=== PATIENT | female | born 1940 | race Two or more races ===

== ENCOUNTER 2021-07-12 04:21 | Inpatient (IN) | payer MEDICARE, OTHER ==
[~2021-07-12] VITALS: Ht 160 cm; Wt 75.8 kg
[2021-07-12 05:33] LABS: Basophils # (auto) 0.1 10 ^3/uL (0-0.2); Basophils % (auto) 1.1 % (0.0-2.0); Eosinophils # (auto) 0.2 10 ^3/uL (0-0.8); Eosinophils % (auto) 2.6 % (0.0-7.0); Hematocrit 37.5 % (36.0-46.0); Hemoglobin 12.4 g/dL (12.2-16.2); Lymphocytes # (auto) 1.7 10 ^3/uL (0.4-5.4); Lymphocytes % (auto) 25.2 % (10.0-50.0); Mean Corpuscular Hemoglobin 31.1 pg (28.0-32.0); Monocytes # (auto) 0.6 10 ^3/uL (0-1.3); Monocytes % (auto) 9.7 % (0.0-12.0); Neutrophils # (auto) 4.1 10 ^3/uL (1.6-8.6); Neutrophils % (auto) 61.4 % (37.0-80.0); Nucleated Red Blood Cells % 0.1 %; Red Blood Cells 3.99 10^6/uL (4.0-5.20); White Blood Cell 6.7 10^3/uL (4.4-10.8)
[2021-07-12 05:47] LABS: Albumin 3.8 g/dL (3.4-5.0); Calcium 9.2 mg/dL (8.5-10.1); Potassium 4.5 mmol/L (3.5-5.1)
[2021-07-12 05:52] LABS: BUN/Creatinine Ratio 23.8; Bilirubin, Total 0.3 mg/dL (0.2-1.0); Total Protein 7.3 g/dL (6.4-8.2)
[2021-07-12 08:21] LABS: Urine Bacteria FEW /hpf (None Seen); Urine Blood Negative /uL (Negative); Urine Specific Gravity 1.013 (1.001-1.035); Urine WBC 3 /hpf (0 - 5)
[2021-07-12] MEDS ORDERED: HYDROmorphone HCL 2 MG/ML VL IV PRN (12:30)
[2021-07-12] MEDS ORDERED: HEPARIN DRIP/D5W 100UNITS/ML 250 ML IV SCH ×4 (12:30→22:45)
[2021-07-12] MEDS ORDERED: MORPHINE SULFATE INJECTION 2 MG/ML SYRG IV PRN ×2 (12:30)
[2021-07-12] MEDS ORDERED: ONDANSETRON HCL 4 MG/2 ML VIAL IV PRN (12:30)
[2021-07-12] MEDS ORDERED: HYDROcodone-ACET 5/325MG TAB PO PRN (12:30)
[2021-07-12] MEDS ORDERED: DOCUSATE SOD 100 MG CAP PO PRN (12:30)
[2021-07-12] MEDS ORDERED: ALUM & MAG HYDROX-SIMETH LIQ(MAALOX) 30 ML PO PRN (12:30)
[2021-07-12] MEDS ORDERED: ENOXAPARIN SOD 60 MG/0.6 ML SYRINGE SC ONE (12:30)
[2021-07-12] MEDS ORDERED: NITROGLYCERIN 0.4 MG SL TAB SL PRN (12:30)
[2021-07-12] MEDS ORDERED: ASPirin 325 MG TAB PO ONE (12:30)
[2021-07-12] MEDS: SODIUM CHLORIDE 0.9% 1,000 ML IV SCH (12:49)
[2021-07-12 13:29] LABS: Cholesterol 126 mg/dL (< 200)
[2021-07-12 13:31] LABS: HDL Cholesterol 68 mg/dL (40-59); LDL Cholesterol 47 mg/dL (< 100); Triglycerides 54 mg/dL (< 150)
[2021-07-12] MEDS: ACETAMINOPHEN 325 MG TAB PO PRN ×2 (15:33→23:20)
[2021-07-12 16:14] LABS: INR 1.05 (0.9-1.15); Partial Thromboplastin Time 31.1 sec (23.6-33.0)
[2021-07-12 20:00] VITALS: BP 147/61
[2021-07-13] MEDS ORDERED: LOSA-69 PO (04:43)
[2021-07-13] MEDS ORDERED: POLY33504 PO (04:43)
[2021-07-13] MEDS ORDERED: CETI1TAB36 PO (04:43)
[2021-07-13] MEDS ORDERED: MULT-688 PO (04:43)
[2021-07-13] MEDS ORDERED: SUCR1TAB PO (04:43)
[2021-07-13] MEDS ORDERED: FLUT1SPR5 NAS (04:43)
[2021-07-13] MEDS ORDERED: SPIR25TA8 PO (04:43)
[2021-07-13] MEDS ORDERED: FLUT1AER3 IN (04:43)
[2021-07-13] MEDS ORDERED: ATOR10TA52 PO (04:43)
[2021-07-13] MEDS ORDERED: ALBU108A5 INH (04:43)
[2021-07-13] MEDS ORDERED: FLUO1TAB12 PO (04:43)
[2021-07-13 05:46] LABS: Hematocrit 41.2 % (36.0-46.0); Hemoglobin 13.6 g/dL (12.2-16.2); Mean Corpuscular Hemoglobin 31.8 pg (28.0-32.0); Mean Corpuscular Hgb Conc. 33.1 g/dL (32.0-36.0); Red Cell Distribution Width 13.3 % (11.8-14.3); White Blood Cell 7.7 10^3/uL (4.4-10.8)
[2021-07-13 06:01] LABS: Basophils % (manual) 0 (0.0-2.0); Blast Cells 0; Metamyelocytes % 0; Myelocytes % 0; Promyelocytes % 0; Reactive Lymphocytes 0
[2021-07-13 07:30] VITALS: BP 143/80
[2021-07-13 07:53] LABS: Band Neutrophils % (manual) 1; Eosinophils % (manual) 8 (0-7); Lymphocytes % (manual) 33 (10.0-50.0); Monocytes % (manual) 8 (0-12)
[2021-07-13 08:10] VITALS: BP 143/80
[2021-07-13 08:23] LABS: INR 1.06 (0.9-1.15); Partial Thromboplastin Time 61.5 sec (23.6-33.0)
[2021-07-13] MEDS: LISINOPRIL 5 MG TAB PO SCH ×2 (09:50→13:22)
[2021-07-13] MEDS: ATORVASTATIN 20 MG TAB PO SCH ×2 (09:50→13:23)
[2021-07-13] MEDS ORDERED: levoFLOXacin 500 MG TAB PO ONE (10:45)
[2021-07-13 11:17] LABS: INR 1.05 (0.9-1.15)
[2021-07-13] MEDS ORDERED: REGADENOSON 0.4 MG/5 ML SYRG IV ONE (11:30)
[2021-07-13 11:54] VITALS: BP 152/75
[2021-07-13 16:00] VITALS: BP 133/91
[2021-07-13 21:30] VITALS: BP 132/77
[2021-07-13] MEDS: SODIUM CHLORIDE 0.9% 1,000 ML IV SCH (21:50)
[2021-07-14] VITALS (8 sets, daily range): BP systolic 129–143; BP diastolic 46–80
[2021-07-14] MEDS: SODIUM CHLORIDE 0.9% 1,000 ML IV SCH ×2 (03:35→14:30)
[2021-07-14] MEDS: ATORVASTATIN 20 MG TAB PO SCH (10:00)
[2021-07-14] MEDS ORDERED: levoFLOXacin 500 MG TAB PO SCH (10:00)
[2021-07-14] MEDS ORDERED: ASPirin 81 mg TAB PO SCH (10:00)
[2021-07-14] MEDS: LISINOPRIL 5 MG TAB PO SCH (10:00)
[2021-07-14] MEDS ORDERED: fentaNYL CITRATE 100 MCG/2 ML VL ONE (14:48)
[2021-07-14] MEDS ORDERED: ANGIOMAX 250 MG VIAL IV ONE (14:48)
[2021-07-14] MEDS ORDERED: LIDOCAINE 2%HCL (LOCAL ANESTH.) INJ 20ML MDV ONE (14:49)
[2021-07-14] MEDS ORDERED: IOHEXOL 350 MG/ML 100ML IJ ONE ×2 (14:49→15:03)
[2021-07-14] MEDS ORDERED: SODIUM CHL 0.9% 0 ML ONE (14:49)
[2021-07-14] MEDS ORDERED: MIDAZOLAM HCL 2MG/2ML 2ml VIAL (1mg/ml) ONE (14:49)
== END 2021-07-14 20:30 | disposition home or self-care (01) | DRG 287 ==
LOC: ER 04:21 → EDBD 04:21 → TELE 12:35 → TELE-CENTR 18:07
PROVIDERS: ADMIT Family Medicine; ATTEND Internal Medicine
PROC: B2111ZZ Fluoroscopy of Multiple Coronary Arteries using Low Osmolar Contrast (ICD-10-PCS; principal; 2021-07-14)
PROC: 4A023N7 Measurement of Cardiac Sampling and Pressure, Left Heart, Percutaneous Approach (ICD-10-PCS; 2021-07-14)
PROC: B2151ZZ Fluoroscopy of Left Heart using Low Osmolar Contrast (ICD-10-PCS; 2021-07-14)
PROC: B41C1ZZ Fluoroscopy of Pelvic Arteries using Low Osmolar Contrast (ICD-10-PCS; 2021-07-14)
DX: I25.10 Atherosclerotic heart disease of native coronary artery without angina pectoris (principal); N39.0 Urinary tract infection, site not specified; G47.30 Sleep apnea, unspecified; E66.9 Obesity, unspecified; E78.5 Hyperlipidemia, unspecified; J44.9 Chronic obstructive pulmonary disease, unspecified; I10 Essential (primary) hypertension; Z20.822 Contact with and (suspected) exposure to COVID-19; Z68.28 Body mass index [BMI] 28.0-28.9, adult; Z86.73 Personal history of transient ischemic attack (TIA), and cerebral infarction without residual deficits; Z87.891 Personal history of nicotine dependence; Z90.710 Acquired absence of both cervix and uterus; Z90.49 Acquired absence of other specified parts of digestive tract; M79.602 Pain in left arm; Z88.0 Allergy status to penicillin
CPT/HCPCS: 36415; 71045; 75736; 78452; 80053; 80061; 81001; 83036; 83735; 84443; 84484; 85007; 85025; 85027; 85610; 85730; 93005; 93017; 93306; 93458; 96360; 96372; 99152; G0378; J2250

== ENCOUNTER 2021-07-24 12:41 | Inpatient (IN) | payer MEDICARE ==
[~2021-07-24] VITALS: Ht 162.6 cm; Wt 78.5 kg
[~2021-07-24 12:41] MED LIST: ALBU108A5 INH; ATOR10TA52 PO; CETI1TAB36 PO; FLUO1TAB12 PO; FLUT1AER3 IN; FLUT1SPR5 NAS; LOSA-69 PO; MULT-688 PO; POLY33504 PO; SPIR25TA8 PO
[2021-07-24 13:50] LABS: Basophils # (auto) 0.1 10 ^3/uL (0-0.2); Basophils % (auto) 1.2 % (0.0-2.0); Eosinophils # (auto) 0.1 10 ^3/uL (0-0.8); Eosinophils % (auto) 1.8 % (0.0-7.0); Hematocrit 36.9 % (36.0-46.0); Hemoglobin 12.5 g/dL (12.2-16.2); Lymphocytes # (auto) 1.8 10 ^3/uL (0.4-5.4); Mean Corpuscular Hemoglobin 31.6 pg (28.0-32.0); Mean Corpuscular Hgb Conc. 33.8 g/dL (32.0-36.0); Mean Corpuscular Volume 93.4 fL (80.0-100.0); Monocytes # (auto) 0.6 10 ^3/uL (0-1.3); Monocytes % (auto) 9.4 % (0.0-12.0); Neutrophils # (auto) 4.1 10 ^3/uL (1.6-8.6); Neutrophils % (auto) 61.6 % (37.0-80.0); Nucleated Red Blood Cells % 0.1 %; Red Blood Cells 3.95 10^6/uL (4.0-5.20); Red Cell Distribution Width 12.9 % (11.8-14.3); White Blood Cell 6.7 10^3/uL (4.4-10.8)
[2021-07-24 14:25] LABS: Albumin 3.9 g/dL (3.4-5.0); BUN/Creatinine Ratio 19.8; Bilirubin, Total 0.5 mg/dL (0.2-1.0); Calcium 9.9 mg/dL (8.5-10.1); Total Protein 7.7 g/dL (6.4-8.2)
[2021-07-24 14:45] LABS: Potassium 4.4 mmol/L (3.5-5.1)
[2021-07-24 16:05] LABS: Urine Bacteria NONE SEEN /hpf (None Seen); Urine Blood Negative /uL (Negative); Urine Specific Gravity 1.007 (1.001-1.035); Urine WBC <1 /hpf (0 - 5)
[2021-07-24] MEDS ORDERED: ONDANSETRON HCL 4 MG/2 ML VIAL IV PRN (21:00)
[2021-07-24] MEDS ORDERED: DOCUSATE SOD 100 MG CAP PO PRN (21:00)
[2021-07-24] MEDS ORDERED: ACETAMINOPHEN 325 MG TAB PO PRN (21:00)
[2021-07-24] MEDS ORDERED: HYDROcodone-ACET 5/325MG TAB PO PRN (21:00)
[2021-07-24] MEDS ORDERED: NITROGLYCERIN 0.4 MG SL TAB SL PRN (23:15)
[2021-07-24] MEDS ORDERED: MORPHINE SULFATE INJECTION 2 MG/ML SYRG IV PRN (23:15)
[2021-07-25] MEDS ORDERED: DICY10CA12 PO (01:26)
[2021-07-25 01:27] VITALS: BP 155/52
[2021-07-25] MEDS: SODIUM CHLORIDE 0.9% 1,000 ML IV SCH ×3 (01:40→20:30)
[2021-07-25] MEDS: ATORVASTATIN 20 MG TAB PO SCH ×2 (01:42→21:46)
[2021-07-25 04:37] VITALS: BP 132/58
[2021-07-25 07:13] LABS: Albumin 3.3 g/dL (3.4-5.0); Calcium 9.2 mg/dL (8.5-10.1); Potassium 4.1 mmol/L (3.5-5.1)
[2021-07-25 07:15] LABS: BUN/Creatinine Ratio 17.5
[2021-07-25 07:16] LABS: Basophils # (auto) 0.1 10 ^3/uL (0-0.2); Basophils % (auto) 1.6 % (0.0-2.0); Eosinophils # (auto) 0.2 10 ^3/uL (0-0.8); Eosinophils % (auto) 3.3 % (0.0-7.0); Hematocrit 36.8 % (36.0-46.0); Hemoglobin 12.4 g/dL (12.2-16.2); Lymphocytes # (auto) 1.5 10 ^3/uL (0.4-5.4); Lymphocytes % (auto) 24.1 % (10.0-50.0); Mean Corpuscular Hemoglobin 31.4 pg (28.0-32.0); Mean Corpuscular Hgb Conc. 33.6 g/dL (32.0-36.0); Mean Corpuscular Volume 93.4 fL (80.0-100.0); Monocytes # (auto) 0.6 10 ^3/uL (0-1.3); Monocytes % (auto) 9.5 % (0.0-12.0); Neutrophils # (auto) 3.9 10 ^3/uL (1.6-8.6); Neutrophils % (auto) 61.5 % (37.0-80.0); Nucleated Red Blood Cells % 0.1 %; Red Blood Cells 3.94 10^6/uL (4.0-5.20); White Blood Cell 6.3 10^3/uL (4.4-10.8)
[2021-07-25 07:18] LABS: Bilirubin, Total 0.5 mg/dL (0.2-1.0); Total Protein 6.7 g/dL (6.4-8.2)
[2021-07-25 09:00] VITALS: BP 136/51
[2021-07-25] MEDS: ASPirin 81 mg TAB PO SCH (09:52)
[2021-07-25] MEDS: FAMOTIDINE 20 MG TAB PO SCH (09:53)
[2021-07-25] MEDS: LOSARTAN POTASSIUM 50 MG TAB PO SCH (09:53)
[2021-07-25 13:00] VITALS: BP 148/66
[2021-07-25 17:00] VITALS: BP 126/53
[2021-07-25 22:00] VITALS: BP 114/47
[2021-07-26 05:00] VITALS: BP 154/67
[2021-07-26 09:00] VITALS: BP 133/61
[2021-07-26] MEDS: LOSARTAN POTASSIUM 50 MG TAB PO SCH (09:21)
[2021-07-26] MEDS: FAMOTIDINE 20 MG TAB PO SCH (09:21)
[2021-07-26] MEDS: ASPirin 81 mg TAB PO SCH (09:21)
[2021-07-26 13:00] VITALS: BP 132/50
[2021-07-26 16:37] VITALS: BP 138/56
[2021-07-26] MEDS: ATORVASTATIN 20 MG TAB PO SCH (21:02)
[2021-07-26] MEDS ORDERED: LORazepam 2MG/ML-1ML VIAL IV PRN (21:30)
[2021-07-26 22:00] VITALS: BP 130/52
[2021-07-26] MEDS: SODIUM CHLORIDE 0.9% 1,000 ML IV SCH (22:19)
[2021-07-27] MEDS ORDERED: IOHEXOL 350 MG/ML 100ML IJ ONE (08:50)
[2021-07-27 09:00] VITALS: BP 137/62
[2021-07-27] MEDS: FAMOTIDINE 20 MG TAB PO SCH (10:14)
[2021-07-27] MEDS: ASPirin 81 mg TAB PO SCH (10:14)
[2021-07-27] MEDS: LOSARTAN POTASSIUM 50 MG TAB PO SCH (10:15)
[2021-07-27 13:00] VITALS: BP 136/47
[2021-07-27] MEDS: SODIUM CHLORIDE 0.9% 1,000 ML IV SCH (15:40)
[2021-07-27 17:00] VITALS: BP 159/53
[2021-07-27] MEDS: ATORVASTATIN 20 MG TAB PO SCH (20:36)
[2021-07-27] MEDS: SILDENAFIL CITRATE 20 MG TAB PO SCH (20:36)
[2021-07-27 21:31] VITALS: BP 108/46
[2021-07-28 05:09] VITALS: BP 112/51
[2021-07-28 06:54] LABS: Calcium 9.1 mg/dL (8.5-10.1); Potassium 3.9 mmol/L (3.5-5.1)
[2021-07-28 06:58] LABS: BUN/Creatinine Ratio 25.4
[2021-07-28 08:25] VITALS: BP 144/53
[2021-07-28] MEDS: SILDENAFIL CITRATE 20 MG TAB PO SCH ×2 (08:26→14:22)
[2021-07-28 08:43] VITALS: BP 144/53
[2021-07-28] MEDS: ASPirin 81 mg TAB PO SCH (09:09)
[2021-07-28] MEDS: LOSARTAN POTASSIUM 50 MG TAB PO SCH (09:09)
[2021-07-28] MEDS: FAMOTIDINE 20 MG TAB PO SCH (09:10)
[2021-07-28 13:00] VITALS: BP 130/46
[2021-07-28 17:00] VITALS: BP 136/50
[2021-07-28 17:09] VITALS: BP 130/46
== END 2021-07-28 19:25 | disposition home or self-care (01) | DRG 69 ==
LOC: ER 12:41 → EDBD 12:41 → TELE-WESTW 23:10
PROVIDERS: ADMIT Nurse Practitioner Family; ATTEND Family Medicine
PROC: 5A09357 Assistance with Respiratory Ventilation, Less than 24 Consecutive Hours, Continuous Positive Airway Pressure (ICD-10-PCS; principal; 2021-07-26)
DX: G45.9 Transient cerebral ischemic attack, unspecified (principal); E87.1 Hypo-osmolality and hyponatremia; I10 Essential (primary) hypertension; I07.1 Rheumatic tricuspid insufficiency; E04.1 Nontoxic single thyroid nodule; G47.30 Sleep apnea, unspecified; M19.90 Unspecified osteoarthritis, unspecified site; J30.2 Other seasonal allergic rhinitis; R50.9 Fever, unspecified; M79.602 Pain in left arm; Z20.822 Contact with and (suspected) exposure to COVID-19; R55 Syncope and collapse; R07.89 Other chest pain; M79.10 Myalgia, unspecified site; Z79.82 Long term (current) use of aspirin; Z79.899 Other long term (current) drug therapy; Z82.3 Family history of stroke; Z83.3 Family history of diabetes mellitus; Z90.49 Acquired absence of other specified parts of digestive tract; Z90.710 Acquired absence of both cervix and uterus; Z86.73 Personal history of transient ischemic attack (TIA), and cerebral infarction without residual deficits; Z88.0 Allergy status to penicillin; Z88.2 Allergy status to sulfonamides
CPT/HCPCS: 36415; 70450; 70551; 71045; 71275; 80048; 80053; 81001; 82550; 83605; 83735; 84484; 85025; 85379; 87081; 87426; 93005; 93886; 95819; G0378; J2405

== ENCOUNTER → 2021-12-01 | Outpatient (CLI) | payer MEDICARE ==
[~2021-12-01] MED LIST changes: +DICY10CA12 PO
== END | disposition home or self-care (01) ==
LOC: Rad HDHVI 14:43
PROVIDERS: ATTEND Internal Medicine Cardiovascular Disease
DX: I51.7 Cardiomegaly (principal); R07.89 Other chest pain
CPT/HCPCS: 93306

== ENCOUNTER 2022-01-18 11:04 | Inpatient (IN) | payer MEDICARE ==
[~2022-01-18] VITALS: Ht 160 cm; Wt 74.4 kg
[2022-01-18] MEDS ORDERED: ASPirin 81 mg TAB PO ONE (11:30)
[2022-01-18 11:56] LABS: Basophils # (auto) 0.1 10 ^3/uL (0-0.2); Eosinophils # (auto) 0.1 10 ^3/uL (0-0.8); Lymphocytes # (auto) 1.6 10 ^3/uL (0.4-5.4); Mean Corpuscular Volume 77.7 fL (80.0-100.0); Monocytes # (auto) 0.7 10 ^3/uL (0-1.3); Monocytes % (auto) 9.5 % (0.0-12.0)
[2022-01-18 11:58] LABS: Basophils % (auto) 1.1 % (0.0-2.0); Eosinophils % (auto) 1.8 % (0.0-7.0); Hematocrit 32.3 % (36.0-46.0); Lymphocytes % (auto) 22.4 % (10.0-50.0); Mean Corpuscular Hemoglobin 24.1 pg (28.0-32.0); Neutrophils # (auto) 4.6 10 ^3/uL (1.6-8.6); Neutrophils % (auto) 65.2 % (37.0-80.0); Red Blood Cells 4.16 10^6/uL (4.0-5.20); Red Cell Distribution Width 16.3 % (11.8-14.3); White Blood Cell 7.1 10^3/uL (4.4-10.8)
[2022-01-18 12:16] LABS: Albumin 4.1 g/dL (3.4-5.0); Calcium 9.4 mg/dL (8.5-10.1); Magnesium 2.4 mg/dL (1.6-2.6); Potassium 4.6 mmol/L (3.5-5.1)
[2022-01-18 12:18] LABS: BUN/Creatinine Ratio 33.8
[2022-01-18 12:19] LABS: Bilirubin, Total 0.4 mg/dL (0.2-1.0); INR 0.95 (0.9-1.15); Partial Thromboplastin Time 27.1 sec (24.6-33.4); Total Protein 7.8 g/dL (6.4-8.2)
[2022-01-18 12:34] LABS: Urine Bacteria NONE SEEN /hpf (None Seen); Urine Blood Negative /uL (Negative); Urine Specific Gravity 1.008 (1.001-1.035); Urine WBC <1 /hpf (0 - 5)
[2022-01-18] MEDS ORDERED: MORPHINE SULFATE INJ 2 MG/ml SYRG IV PRN (14:30)
[2022-01-18] MEDS ORDERED: hydrALAZINE HCL 20 MG/ML VL IV PRN (14:30)
[2022-01-18] MEDS ORDERED: NITROGLYCERIN 0.4 MG SL TAB SL PRN (14:30)
[2022-01-19] MEDS ORDERED: SILD20TA2 PO (04:00)
[2022-01-19 04:59] LABS: Basophils # (auto) 0.1 10 ^3/uL (0-0.2); Basophils % (auto) 0.9 % (0.0-2.0); Eosinophils # (auto) 0.2 10 ^3/uL (0-0.8); Eosinophils % (auto) 2.9 % (0.0-7.0); Hematocrit 32.5 % (36.0-46.0); Hemoglobin 10.1 g/dL (12.2-16.2); Lymphocytes # (auto) 1.8 10 ^3/uL (0.4-5.4); Lymphocytes % (auto) 24.5 % (10.0-50.0); Mean Corpuscular Hemoglobin 24.2 pg (28.0-32.0); Mean Corpuscular Volume 78.2 fL (80.0-100.0); Monocytes # (auto) 0.7 10 ^3/uL (0-1.3); Monocytes % (auto) 9.5 % (0.0-12.0); Neutrophils # (auto) 4.6 10 ^3/uL (1.6-8.6); Neutrophils % (auto) 62.2 % (37.0-80.0); Red Blood Cells 4.15 10^6/uL (4.0-5.20); Red Cell Distribution Width 16.7 % (11.8-14.3); White Blood Cell 7.5 10^3/uL (4.4-10.8)
[2022-01-19 05:29] LABS: Albumin 3.9 g/dL (3.4-5.0); Calcium 9.2 mg/dL (8.5-10.1); Potassium 4.1 mmol/L (3.5-5.1)
[2022-01-19 05:34] LABS: BUN/Creatinine Ratio 33.8; Bilirubin, Total 0.5 mg/dL (0.2-1.0); Total Protein 7.2 g/dL (6.4-8.2)
[2022-01-19 09:31] VITALS: BP 130/62
[2022-01-19] MEDS ORDERED: ENOXAPARIN SOD 40 MG/0.4 ML SYRINGE SC SCH (10:00)
[2022-01-19] MEDS ORDERED: SPIRONOLACTONE 25 MG TAB PO ONE (10:45)
[2022-01-19] MEDS ORDERED: ALBUTEROL SULF 2.5 MG/0.5ML(0.5%) NEB SOLN NEB PRN (10:45)
[2022-01-19 13:00] VITALS: BP 142/58
[2022-01-19] MEDS ORDERED: LIDOCAINE 2%HCL (LOCAL ANESTH.) INJ 20ML MDV ONE (16:15)
[2022-01-19 21:55] VITALS: BP 123/53
[2022-01-19] MEDS ORDERED: ATORVASTATIN 20 MG TAB PO SCH (22:00)
[2022-01-20 05:40] VITALS: BP 141/60
[2022-01-20 09:00] VITALS: BP 142/61
[2022-01-20] MEDS ORDERED: FAMOTIDINE 20 MG TAB PO SCH (10:00)
[2022-01-20] MEDS ORDERED: FLUoxetine HCL 10 MG CAP PO SCH (10:00)
[2022-01-20] MEDS ORDERED: SPIRONOLACTONE 25 MG TAB PO SCH (10:00)
[2022-01-20] MEDS ORDERED: SILDENAFIL CITRATE 20 MG TAB PO ONE (10:03)
[2022-01-20 13:00] VITALS: BP 148/52
[2022-01-20] MEDS ORDERED: SILDENAFIL CITRATE 20 MG TAB PO SCH (14:00)
[2022-01-20 15:11] VITALS: BP 132/90
== END 2022-01-20 16:10 | disposition home or self-care (01) | DRG 287 ==
LOC: ER 11:04 → TELE 14:21 → TELE-CENTR 01-19 08:47
PROVIDERS: ADMIT Registered Nurse; ATTEND Internal Medicine
PROC: 4A023N6 Measurement of Cardiac Sampling and Pressure, Right Heart, Percutaneous Approach (ICD-10-PCS; principal; 2022-01-19)
DX: I27.20 Pulmonary hypertension, unspecified (principal); D64.9 Anemia, unspecified; E04.1 Nontoxic single thyroid nodule; E78.5 Hyperlipidemia, unspecified; I07.1 Rheumatic tricuspid insufficiency; I10 Essential (primary) hypertension; M19.90 Unspecified osteoarthritis, unspecified site; Z20.822 Contact with and (suspected) exposure to COVID-19; G47.30 Sleep apnea, unspecified; J44.9 Chronic obstructive pulmonary disease, unspecified; Z90.710 Acquired absence of both cervix and uterus; Z86.73 Personal history of transient ischemic attack (TIA), and cerebral infarction without residual deficits; Z82.49 Family history of ischemic heart disease and other diseases of the circulatory system; Z88.0 Allergy status to penicillin; Z88.8 Allergy status to other drugs, medicaments and biological substances
CPT/HCPCS: 36415; 71045; 80053; 81001; 83735; 84484; 85025; 85610; 85730; 93005; 93451; 99152; C1751; G0378

== ENCOUNTER → 2022-04-21 | Outpatient (CLI) | payer MEDICARE ==
[~2022-04-21] MED LIST changes: +SILD20TA2 PO
== END | disposition home or self-care (01) ==
LOC: RT 10:37
PROVIDERS: ATTEND Internal Medicine Cardiovascular Disease
DX: R09.02 Hypoxemia (principal)
CPT/HCPCS: 36600; 82805; 93454

== ENCOUNTER → 2022-09-09 | Outpatient (CLI) | payer MEDICARE ==
[~2022-09-09] MED LIST changes: +CYANOCOBALAMIN (B-12) 1000 MCG/1 ML VIAL IM ONE; +CYANOCOBALAMIN (B-12) 1000 MCG/1 ML VIAL ONE
[2022-09-09 11:25] VITALS: BP 158/69
[2022-09-09 12:08] VITALS: BP 144/62
== END | disposition home or self-care (01) ==
LOC: CHF HDHVI 11:08
PROVIDERS: ATTEND Internal Medicine Cardiovascular Disease
DX: I27.21 Secondary pulmonary arterial hypertension (principal); D64.9 Anemia, unspecified
CPT/HCPCS: 96372; G0463; J3420

== ENCOUNTER → 2022-10-01 | Outpatient (CLI) | payer MEDICARE ==
[2022-10-01 10:57] VITALS: BP 131/57
[2022-10-01 11:23] VITALS: BP 142/67
== END | disposition home or self-care (01) ==
LOC: CHF HDHVI 10:52
PROVIDERS: ATTEND Internal Medicine Cardiovascular Disease
DX: I27.21 Secondary pulmonary arterial hypertension (principal); D64.9 Anemia, unspecified; I10 Essential (primary) hypertension
CPT/HCPCS: 96372; G0463; J3420

== ENCOUNTER → 2022-10-29 | Outpatient (CLI) | payer MEDICARE ==
[~2022-10-29] MED LIST changes: -LOSA-69 PO; +LOSA50TA46 PO
[2022-10-29 10:55] VITALS: BP 149/55
[2022-10-29 11:40] VITALS: BP 149/65
== END | disposition home or self-care (01) ==
LOC: CHF HDHVI 10:51
PROVIDERS: ATTEND Internal Medicine Cardiovascular Disease
DX: I27.21 Secondary pulmonary arterial hypertension (principal); D64.9 Anemia, unspecified; I10 Essential (primary) hypertension
CPT/HCPCS: 94618; 96372; G0463; J3420

== ENCOUNTER 2022-12-02 17:56 | Inpatient (IN) | payer MEDICARE ==
[~2022-12-02] VITALS: Ht 160 cm; Wt 82.0 kg
[~2022-12-02 17:56] MED LIST changes: -CYANOCOBALAMIN (B-12) 1000 MCG/1 ML VIAL IM ONE; -CYANOCOBALAMIN (B-12) 1000 MCG/1 ML VIAL ONE
[2022-12-02 18:38] LABS: Basophils # (auto) 0.1 10 ^3/uL (0-0.2); Lymphocytes # (auto) 1.8 10 ^3/uL (0.4-5.4); Monocytes # (auto) 0.6 10 ^3/uL (0-1.3)
[2022-12-02 18:39] LABS: Eosinophils # (auto) 0.2 10 ^3/uL (0-0.8); Eosinophils % (auto) 2.8 % (0.0-7.0); Hematocrit 30.4 % (36.0-46.0); Hemoglobin 9.7 g/dL (12.2-16.2); Lymphocytes % (auto) 30.7 % (10.0-50.0); Mean Corpuscular Hemoglobin 25.6 pg (28.0-32.0); Mean Corpuscular Hgb Conc. 32.1 g/dL (32.0-36.0); Mean Corpuscular Volume 79.9 fL (80.0-100.0); Monocytes % (auto) 9.7 % (0.0-12.0); Neutrophils # (auto) 3.3 10 ^3/uL (1.6-8.6); Neutrophils % (auto) 55.8 % (37.0-80.0); Red Cell Distribution Width 16.2 % (11.8-14.3); White Blood Cell 5.9 10^3/uL (4.4-10.8)
[2022-12-02 18:55] LABS: Albumin 3.8 g/dL (3.4-5.0); Calcium 9.1 mg/dL (8.5-10.1); INR 0.99 (0.9-1.15); Magnesium 2.5 mg/dL (1.6-2.6); Partial Thromboplastin Time 26.8 SEC (24.5-34.5); Potassium 3.9 mmol/L (3.5-5.1)
[2022-12-02 18:58] LABS: BUN/Creatinine Ratio 27.3 (10.0-20.0); Bilirubin, Total 0.3 mg/dL (0.2-1.0); Total Protein 7.3 g/dL (6.4-8.2)
[2022-12-02 21:50] LABS: Urine Bacteria NONE SEEN /hpf (None Seen); Urine Blood Negative /uL (Negative); Urine Specific Gravity 1.006 (1.001-1.035); Urine WBC 5 /hpf (0 - 5)
[2022-12-02] MEDS ORDERED: IPRATROPIUM BROM 0.5 MG/2.5ML INH SOL NEB PRN (23:00)
[2022-12-02] MEDS ORDERED: DOCUSATE SOD 100 MG CAP PO PRN (23:00)
[2022-12-02] MEDS ORDERED: ACETAMINOPHEN 325 MG TAB PO PRN (23:00)
[2022-12-02] MEDS ORDERED: MORPHINE SULFATE INJ 2 MG/ml SYRG IV PRN (23:00)
[2022-12-02] MEDS ORDERED: HYDROcodone-ACET 5/325MG TAB PO PRN (23:00)
[2022-12-02] MEDS ORDERED: ALBUTEROL SULF 2.5 MG/0.5ML(0.5%) NEB SOLN NEB PRN (23:00)
[2022-12-02] MEDS ORDERED: ONDANSETRON HCL 4 MG/2 ML VIAL IV PRN (23:00)
[2022-12-02] MEDS ORDERED: NITROGLYCERIN 0.4 MG SL TAB SL PRN (23:00)
[2022-12-02 23:45] VITALS: BP 129/50
[2022-12-03] MEDS ORDERED: RIOC1TAB12 PO (04:08)
[2022-12-03] MEDS ORDERED: MACI1TAB2 PO (04:11)
[2022-12-03] MEDS ORDERED: levoFLOXacin 500MG 100 ML IV ONE (04:30)
[2022-12-03] MEDS ORDERED: VANCOMYCIN PER PHARMACY 0 MG IV SCH (05:45)
[2022-12-03] MEDS ORDERED: diphenhdrAMINE HCL 50 MG/1 ML VL IV PRN (05:45)
[2022-12-03 05:53] LABS: Eosinophils # (auto) 0.2 10 ^3/uL (0-0.8); Mean Corpuscular Hgb Conc. 31.7 g/dL (32.0-36.0); Monocytes # (auto) 0.7 10 ^3/uL (0-1.3); Neutrophils % (auto) 55.1 % (37.0-80.0); White Blood Cell 5.5 10^3/uL (4.4-10.8)
[2022-12-03 05:55] LABS: Basophils # (auto) 0 10 ^3/uL (0-0.2); Basophils % (auto) 0.8 % (0.0-2.0); Eosinophils % (auto) 3.6 % (0.0-7.0); Hematocrit 31.8 % (36.0-46.0); Hemoglobin 10.1 g/dL (12.2-16.2); Lymphocytes # (auto) 1.6 10 ^3/uL (0.4-5.4); Lymphocytes % (auto) 28.5 % (10.0-50.0); Mean Corpuscular Volume 82.2 fL (80.0-100.0); Red Blood Cells 3.87 10^6/uL (4.0-5.20); Red Cell Distribution Width 16.1 % (11.8-14.3)
[2022-12-03 06:07] LABS: Potassium 3.7 mmol/L (3.5-5.1)
[2022-12-03] MEDS: SODIUM CHLOR 0.9% PF (SALINE LOCK) 10ML VIAL/SYR IV SCH ×2 (06:13→14:08)
[2022-12-03 06:15] LABS: Albumin 3.7 g/dL (3.4-5.0); BUN/Creatinine Ratio 27.3 (10.0-20.0); Bilirubin, Total 0.3 mg/dL (0.2-1.0); Calcium 8.9 mg/dL (8.5-10.1)
[2022-12-03] MEDS ORDERED: VANCOMYCIN 1GM/250ML 250 ML IV ONE (06:15)
[2022-12-03] MEDS ORDERED: FLUoxetine HCL 10 MG CAP PO SCH (10:00)
[2022-12-03] MEDS ORDERED: FLUTICASONE UMECLIDINIUM VILANTEROL IN SCH (10:00)
[2022-12-03] MEDS ORDERED: ATORVASTATIN 20 MG TAB PO SCH (10:00)
[2022-12-03] MEDS ORDERED: ADEMPAS 1 MG PO SCH ×2 (14:00→20:00)
[2022-12-03 19:50] VITALS: BP 146/44
[2022-12-04] MEDS ORDERED: VANCOMYCIN 1GM/250ML 250 ML IV SCH (06:00)
[2022-12-04] MEDS ORDERED: levoFLOXacin 250MG 50 ML IV SCH (10:00)
[2022-12-04] MEDS ORDERED: OPSUMIT 10 MG TABLET PO SCH (10:00)
== END 2022-12-03 22:38 | disposition left against medical advice (07) | DRG 313 ==
LOC: EDUNIT# 17:56 → ER 17:56 → EDBD 17:56 → TELE 23:07
PROVIDERS: ADMIT Nurse Practitioner Family; ATTEND Internal Medicine
DX: R07.89 Other chest pain (principal); I27.21 Secondary pulmonary arterial hypertension; I10 Essential (primary) hypertension; J44.9 Chronic obstructive pulmonary disease, unspecified; E78.5 Hyperlipidemia, unspecified; F41.9 Anxiety disorder, unspecified; Z53.29 Procedure and treatment not carried out because of patient's decision for other reasons; Z86.73 Personal history of transient ischemic attack (TIA), and cerebral infarction without residual deficits; Z88.0 Allergy status to penicillin; Z90.710 Acquired absence of both cervix and uterus; Z90.49 Acquired absence of other specified parts of digestive tract; Z88.1 Allergy status to other antibiotic agents; Z88.8 Allergy status to other drugs, medicaments and biological substances
CPT/HCPCS: 36415; 71045; 80053; 81001; 83735; 83880; 84443; 84484; 85025; 85610; 85730; 87086; 93005; 96365; 96367; 96375; G0378; J1956

== ENCOUNTER → 2022-12-13 | Outpatient (CLI) | payer MEDICARE ==
[~2022-12-13] MED LIST changes: +MACI1TAB2 PO; +RIOC1TAB12 PO
== END | disposition home or self-care (01) ==
LOC: Rad HDHVI 08:04
PROVIDERS: ATTEND Internal Medicine Cardiovascular Disease
DX: I08.3 Combined rheumatic disorders of mitral, aortic and tricuspid valves (principal); I11.9 Hypertensive heart disease without heart failure; R06.02 Shortness of breath
CPT/HCPCS: 93306

== ENCOUNTER → 2022-12-15 | Outpatient (CLI) | payer MEDICARE ==
[~2022-12-15] VITALS: Ht 162.6 cm; Wt 77.1 kg
== END | disposition home or self-care (01) ==
LOC: Rad HDHVI 13:30
PROVIDERS: ATTEND Internal Medicine Cardiovascular Disease
DX: I11.0 Hypertensive heart disease with heart failure (principal); I50.33 Acute on chronic diastolic (congestive) heart failure; R06.02 Shortness of breath; I20.9 Angina pectoris, unspecified; I27.21 Secondary pulmonary arterial hypertension; E78.5 Hyperlipidemia, unspecified; Z82.49 Family history of ischemic heart disease and other diseases of the circulatory system
CPT/HCPCS: 78452; 93017; 96374; A9500

== ENCOUNTER → 2023-02-01 | Outpatient (CLI) | payer MEDICARE ==
[~2023-02-01] VITALS: Ht 30.5 cm; Wt 0.5 kg
[~2023-02-01] MED LIST changes: +CYANOCOBALAMIN (B-12) 1000 MCG/1 ML VIAL IM ONE; +CYANOCOBALAMIN (B-12) 1000 MCG/1 ML VIAL ONE
[2023-02-01 10:40] VITALS: BP 141/49; PULSE 62; RESP 16; O2SAT 95
[2023-02-01 11:17] VITALS: BP 140/53; PULSE 70; RESP 16; O2SAT 97
== END | disposition home or self-care (01) ==
LOC: CHF HDHVI 10:31
PROVIDERS: ATTEND Internal Medicine Cardiovascular Disease
DX: I27.21 Secondary pulmonary arterial hypertension (principal); D64.9 Anemia, unspecified; F41.9 Anxiety disorder, unspecified; J44.9 Chronic obstructive pulmonary disease, unspecified; E78.5 Hyperlipidemia, unspecified; I11.0 Hypertensive heart disease with heart failure; I50.9 Heart failure, unspecified; Z86.73 Personal history of transient ischemic attack (TIA), and cerebral infarction without residual deficits; Z90.710 Acquired absence of both cervix and uterus; Z90.49 Acquired absence of other specified parts of digestive tract
CPT/HCPCS: 94618; 96372; G0463; J3420

== ENCOUNTER → 2023-03-11 | Outpatient (CLI) | payer MEDICARE ==
[~2023-03-11] VITALS: Ht 30.5 cm; Wt 0.5 kg
[2023-03-11 10:28] VITALS: BP 139/60; PULSE 65; RESP 18; O2SAT 97
[2023-03-11 11:05] VITALS: BP 145/67; PULSE 65; RESP 18; O2SAT 98
== END | disposition home or self-care (01) ==
LOC: CHF HDHVI 10:21
PROVIDERS: ATTEND Internal Medicine Cardiovascular Disease
DX: I27.21 Secondary pulmonary arterial hypertension (principal); D64.9 Anemia, unspecified; I11.0 Hypertensive heart disease with heart failure; I50.9 Heart failure, unspecified; F41.9 Anxiety disorder, unspecified; J44.9 Chronic obstructive pulmonary disease, unspecified; E78.5 Hyperlipidemia, unspecified; Z86.73 Personal history of transient ischemic attack (TIA), and cerebral infarction without residual deficits; Z90.49 Acquired absence of other specified parts of digestive tract; Z90.710 Acquired absence of both cervix and uterus
CPT/HCPCS: 96372; G0463; J3420

== ENCOUNTER → 2023-05-12 | Outpatient (CLI) | payer MEDICARE ==
[~2023-05-12] VITALS: Ht 30.5 cm; Wt 0.5 kg
[2023-05-12 11:00] VITALS: BP 121/55; PULSE 63; RESP 18; O2SAT 96
[2023-05-12 12:00] VITALS: BP 143/61; PULSE 62; RESP 16; O2SAT 98
== END | disposition home or self-care (01) ==
LOC: CHF HDHVI 10:57
PROVIDERS: ATTEND Internal Medicine Cardiovascular Disease
DX: D51.9 Vitamin B12 deficiency anemia, unspecified (principal); I27.21 Secondary pulmonary arterial hypertension; I10 Essential (primary) hypertension
CPT/HCPCS: 94618; 96372; G0463; J3420

== ENCOUNTER → 2023-06-08 | Outpatient (CLI) | payer MEDICARE ==
[2023-06-08 11:00] VITALS: BP 156/61; PULSE 74; RESP 16; O2SAT 96
[2023-06-08 11:16] VITALS: BP 134/72; PULSE 69; RESP 16; O2SAT 96
== END | disposition home or self-care (01) ==
LOC: CHF HDHVI 10:53
PROVIDERS: ATTEND Internal Medicine Cardiovascular Disease
DX: I27.21 Secondary pulmonary arterial hypertension (principal); D64.9 Anemia, unspecified; I10 Essential (primary) hypertension
CPT/HCPCS: 96372; G0463; J3420

== ENCOUNTER → 2023-08-09 | Outpatient (CLI) | payer MEDICARE ==
[~2023-08-09] MED LIST changes: -CYANOCOBALAMIN (B-12) 1000 MCG/1 ML VIAL IM ONE; -CYANOCOBALAMIN (B-12) 1000 MCG/1 ML VIAL ONE
[2023-08-09 11:00] VITALS: BP 163/67; PULSE 72; RESP 18; O2SAT 95
[2023-08-09] MEDS: CYANOCOBALAMIN (B-12) 1000 MCG/1 ML VIAL ONE (11:01)
[2023-08-09] MEDS: CYANOCOBALAMIN (B-12) 1000 MCG/1 ML VIAL IM ONE (11:06)
[2023-08-09 11:33] VITALS: BP 137/66; PULSE 63; RESP 18; O2SAT 95
== END | disposition home or self-care (01) ==
LOC: CHF HDHVI 10:55
PROVIDERS: ATTEND Internal Medicine Cardiovascular Disease
DX: D64.9 Anemia, unspecified (principal); I27.21 Secondary pulmonary arterial hypertension; I10 Essential (primary) hypertension
CPT/HCPCS: 94618; 96372; G0463; J3420

== ENCOUNTER → 2023-09-28 | Outpatient (CLI) | payer MEDICARE ==
[~2023-09-28] MED LIST changes: +DICY-89 PO; -DICY10CA12 PO; +LOSA-534 PO; -LOSA50TA46 PO; -SILD20TA2 PO; +SILD20TA41 PO
== END | disposition home or self-care (01) ==
LOC: Rad HDHVI 09:00
PROVIDERS: ATTEND Internal Medicine Cardiovascular Disease
DX: I08.8 Other rheumatic multiple valve diseases (principal); I11.9 Hypertensive heart disease without heart failure; R06.02 Shortness of breath
CPT/HCPCS: 93306

== ENCOUNTER → 2023-12-06 | Outpatient (CLI) | payer MEDICARE ==
[2023-12-06 10:55] VITALS: BP 133/53; PULSE 70; RESP 16; O2SAT 98
[2023-12-06] MEDS: CYANOCOBALAMIN (B-12) 1000 MCG/1 ML VIAL ONE (11:01)
[2023-12-06] MEDS: CYANOCOBALAMIN (B-12) 1000 MCG/1 ML VIAL IM ONE (11:04)
[2023-12-06 11:16] VITALS: BP 131/73; PULSE 72; RESP 18; O2SAT 98
== END | disposition home or self-care (01) ==
LOC: CHF HDHVI 10:47
PROVIDERS: ATTEND Internal Medicine Cardiovascular Disease
DX: I27.21 Secondary pulmonary arterial hypertension (principal); I11.9 Hypertensive heart disease without heart failure
CPT/HCPCS: 96372; G0463; J3420

== ENCOUNTER → 2024-01-04 | Outpatient (CLI) | payer MEDICARE ==
[2024-01-04 11:11] VITALS: BP 159/49; PULSE 67; RESP 18; O2SAT 95
[2024-01-04] MEDS: CYANOCOBALAMIN (B-12) 1000 MCG/1 ML VIAL IM ONE (11:11)
[2024-01-04] MEDS: CYANOCOBALAMIN (B-12) 1000 MCG/1 ML VIAL ONE (11:14)
[2024-01-04 11:20] VITALS: BP 143/57; PULSE 66; RESP 18; O2SAT 95
== END | disposition home or self-care (01) ==
LOC: CHF HDHVI 10:53
PROVIDERS: ATTEND Internal Medicine Cardiovascular Disease
DX: I27.21 Secondary pulmonary arterial hypertension (principal); I11.9 Hypertensive heart disease without heart failure; R06.02 Shortness of breath; D64.9 Anemia, unspecified
CPT/HCPCS: 96372; G0463; J3420

== ENCOUNTER → 2024-02-07 | Outpatient (CLI) | payer MEDICARE ==
[2024-02-07 10:40] VITALS: BP 125/54; PULSE 69; RESP 18; O2SAT 93
[2024-02-07] MEDS: CYANOCOBALAMIN (B-12) 1000 MCG/1 ML VIAL IM ONE (10:51)
[2024-02-07] MEDS: CYANOCOBALAMIN (B-12) 1000 MCG/1 ML VIAL ONE (10:51)
[2024-02-07 10:53] VITALS: BP 124/70; PULSE 70; RESP 18; O2SAT 94
== END | disposition home or self-care (01) ==
LOC: CHF HDHVI 10:37
PROVIDERS: ATTEND Internal Medicine Cardiovascular Disease
DX: D64.9 Anemia, unspecified (principal); I27.0 Primary pulmonary hypertension
CPT/HCPCS: 96372; G0463; J3420

== ENCOUNTER → 2024-03-08 | Outpatient (CLI) | payer MEDICARE ==
[~2024-03-08] MED LIST changes: +CYANOCOBALAMIN (B-12) 1000 MCG/1 ML VIAL ONE
[2024-03-08 10:48] VITALS: BP 137/52; PULSE 72; RESP 18; O2SAT 95
[2024-03-08] MEDS: CYANOCOBALAMIN (B-12) 1000 MCG/1 ML VIAL IM ONE (10:58)
[2024-03-08 11:03] VITALS: BP 144/57; PULSE 73; RESP 16; O2SAT 95
== END | disposition home or self-care (01) ==
LOC: CHF HDHVI 10:45
PROVIDERS: ATTEND Internal Medicine Cardiovascular Disease
DX: I27.21 Secondary pulmonary arterial hypertension (principal); D64.9 Anemia, unspecified; R53.83 Other fatigue; I10 Essential (primary) hypertension
CPT/HCPCS: 96372; G0463; J3420

== ENCOUNTER → 2024-04-11 | Outpatient (CLI) | payer MEDICARE ==
[~2024-04-11] MED LIST changes: -CYANOCOBALAMIN (B-12) 1000 MCG/1 ML VIAL ONE
[2024-04-11 11:00] VITALS: BP 142/78; PULSE 67; RESP 16; O2SAT 98
[2024-04-11] MEDS: CYANOCOBALAMIN (B-12) 1000 MCG/1 ML VIAL IM ONE (11:00)
[2024-04-11 11:15] VITALS: BP 133/70; PULSE 63; RESP 16; O2SAT 98
[2024-04-11] MEDS: CYANOCOBALAMIN (B-12) 1000 MCG/1 ML VIAL ONE (11:20)
== END | disposition home or self-care (01) ==
LOC: CHF HDHVI 10:59
PROVIDERS: ATTEND Internal Medicine Cardiovascular Disease
DX: I27.0 Primary pulmonary hypertension (principal); D64.9 Anemia, unspecified
CPT/HCPCS: 96372; G0463; J3420

== ENCOUNTER → 2024-04-13 | Outpatient (CLI) | payer MEDICARE | END | disposition home or self-care (01) | LOC: Rad HDHVI 13:51 | PROVIDERS: ATTEND Internal Medicine Cardiovascular Disease | DX: I50.33 Acute on chronic diastolic (congestive) heart failure (principal) | CPT/HCPCS: 93306 ==

== ENCOUNTER → 2024-06-27 | Outpatient (CLI) | payer MEDICARE ==
[~2024-06-27] VITALS: Ht 30.5 cm; Wt 0.5 kg
[2024-06-27 11:00] VITALS: BP 140/56; PULSE 81; RESP 18; O2SAT 99
[2024-06-27] MEDS: CYANOCOBALAMIN (B-12) 1000 MCG/1 ML VIAL IM ONE (11:00)
[2024-06-27] MEDS: CYANOCOBALAMIN (B-12) 1000 MCG/1 ML VIAL ONE (11:07)
[2024-06-27 11:15] VITALS: BP 166/81; PULSE 76; RESP 18; O2SAT 99
== END | disposition home or self-care (01) ==
LOC: CHF HDHVI 10:48
PROVIDERS: ATTEND Internal Medicine Cardiovascular Disease
DX: D64.9 Anemia, unspecified (principal); I27.0 Primary pulmonary hypertension
CPT/HCPCS: 96372; G0463; J3420

== ENCOUNTER → 2024-08-22 | Outpatient (CLI) | payer MEDICARE ==
[~2024-08-22] VITALS: Ht 161.3 cm; Wt 74.4 kg
== END | disposition home or self-care (01) ==
LOC: Rad HDHVI 08:07
PROVIDERS: ATTEND Internal Medicine Cardiovascular Disease
DX: Z13.6 Encounter for screening for cardiovascular disorders (principal); I11.0 Hypertensive heart disease with heart failure; I50.33 Acute on chronic diastolic (congestive) heart failure; E78.00 Pure hypercholesterolemia, unspecified; R00.2 Palpitations; R06.02 Shortness of breath; I49.3 Ventricular premature depolarization; R06.00 Dyspnea, unspecified; R53.83 Other fatigue; I27.21 Secondary pulmonary arterial hypertension; Z82.49 Family history of ischemic heart disease and other diseases of the circulatory system
CPT/HCPCS: 78452; 93017; A9500; 96374

== ENCOUNTER 2024-11-28 11:06 | Outpatient (CLI) | payer MEDICARE ==
[2024-11-28 11:13] VITALS: BP 118/54; PULSE 67; RESP 16; O2SAT 98
[2024-11-28] MEDS: CYANOCOBALAMIN (B-12) 1000 MCG/1 ML VIAL IM ONE (11:37)
[2024-11-28 11:38] VITALS: BP 113/50; PULSE 64; RESP 16; O2SAT 98
[2024-11-28] MEDS: CYANOCOBALAMIN (B-12) 1000 MCG/1 ML VIAL ONE (12:25)
== END 2024-11-28 17:00 | disposition home or self-care (01) ==
LOC: CHF HDHVI 11:06
PROVIDERS: ATTEND Internal Medicine Cardiovascular Disease
DX: D64.9 Anemia, unspecified (principal); I11.0 Hypertensive heart disease with heart failure; I50.33 Acute on chronic diastolic (congestive) heart failure; F41.9 Anxiety disorder, unspecified; E78.00 Pure hypercholesterolemia, unspecified; Z88.1 Allergy status to other antibiotic agents; Z88.0 Allergy status to penicillin; Z90.49 Acquired absence of other specified parts of digestive tract
CPT/HCPCS: 96372; G0463; J3420

== ENCOUNTER 2025-01-16 10:08 | Outpatient (CLI) | payer MEDICARE ==
[2025-01-16 10:20] VITALS: BP 132/51; PULSE 61; RESP 20; O2SAT 96
[2025-01-16] MEDS ORDERED: CYANOCOBALAMIN (B-12) 1000 MCG/1 ML VIAL IM ONE (10:20)
[2025-01-16] MEDS ORDERED: CYANOCOBALAMIN (B-12) 1000 MCG/1 ML VIAL ONE (10:26)
[2025-01-16 10:42] VITALS: BP 132/68; PULSE 63; RESP 16; O2SAT 98
== END 2025-01-16 17:00 | disposition home or self-care (01) ==
LOC: CHF HDHVI 10:08
PROVIDERS: ATTEND Internal Medicine Cardiovascular Disease
DX: D51.9 Vitamin B12 deficiency anemia, unspecified (principal); I27.21 Secondary pulmonary arterial hypertension; I11.0 Hypertensive heart disease with heart failure; I50.32 Chronic diastolic (congestive) heart failure; E78.00 Pure hypercholesterolemia, unspecified; F41.9 Anxiety disorder, unspecified; Z90.49 Acquired absence of other specified parts of digestive tract
CPT/HCPCS: 96372; G0463; J3420

== ENCOUNTER 2025-04-17 10:17 | Outpatient (CLI) | payer MEDICARE ==
[2025-04-17 10:48] VITALS: BP 152/60; PULSE 60; RESP 20; O2SAT 100
[2025-04-17] MEDS: CYANOCOBALAMIN (B-12) 1000 MCG/1 ML VIAL IM ONE (11:07)
[2025-04-17] MEDS: CYANOCOBALAMIN (B-12) 1000 MCG/1 ML VIAL ONE (11:09)
[2025-04-17 11:12] VITALS: BP 149/48; PULSE 63; RESP 16; O2SAT 100
== END 2025-04-17 17:00 | disposition home or self-care (01) ==
LOC: CHF HDHVI 10:17
PROVIDERS: ATTEND Internal Medicine Cardiovascular Disease
DX: I27.21 Secondary pulmonary arterial hypertension (principal); D51.9 Vitamin B12 deficiency anemia, unspecified; I11.0 Hypertensive heart disease with heart failure; I50.32 Chronic diastolic (congestive) heart failure; E78.00 Pure hypercholesterolemia, unspecified; F41.9 Anxiety disorder, unspecified; J44.9 Chronic obstructive pulmonary disease, unspecified; M19.90 Unspecified osteoarthritis, unspecified site; I25.10 Atherosclerotic heart disease of native coronary artery without angina pectoris; Z88.0 Allergy status to penicillin; Z88.1 Allergy status to other antibiotic agents; Z90.49 Acquired absence of other specified parts of digestive tract; Z90.710 Acquired absence of both cervix and uterus; Z86.73 Personal history of transient ischemic attack (TIA), and cerebral infarction without residual deficits; Z88.8 Allergy status to other drugs, medicaments and biological substances; Z79.899 Other long term (current) drug therapy; Z87.891 Personal history of nicotine dependence
CPT/HCPCS: 96372; G0463; J3420

== ENCOUNTER 2025-05-22 10:22 | Outpatient (CLI) | payer MEDICARE ==
[2025-05-22 10:30] VITALS: BP 157/62; PULSE 64; RESP 18; O2SAT 99
[2025-05-22] MEDS: CYANOCOBALAMIN (B-12) 1000 MCG/1 ML VIAL ONE (10:34)
[2025-05-22] MEDS: CYANOCOBALAMIN (B-12) 1000 MCG/1 ML VIAL IM ONE (10:45)
[2025-05-22 11:00] VITALS: BP 148/72; PULSE 63; RESP 16; O2SAT 99
== END 2025-05-22 17:00 | disposition home or self-care (01) ==
LOC: CHF HDHVI 10:22
PROVIDERS: ATTEND Internal Medicine Cardiovascular Disease
DX: D51.9 Vitamin B12 deficiency anemia, unspecified (principal); I27.21 Secondary pulmonary arterial hypertension; I11.0 Hypertensive heart disease with heart failure; I50.32 Chronic diastolic (congestive) heart failure; F41.9 Anxiety disorder, unspecified; I25.10 Atherosclerotic heart disease of native coronary artery without angina pectoris; J44.9 Chronic obstructive pulmonary disease, unspecified; M19.90 Unspecified osteoarthritis, unspecified site; E78.00 Pure hypercholesterolemia, unspecified; Z88.1 Allergy status to other antibiotic agents; Z88.8 Allergy status to other drugs, medicaments and biological substances; Z88.0 Allergy status to penicillin; Z79.899 Other long term (current) drug therapy; Z87.891 Personal history of nicotine dependence; Z86.73 Personal history of transient ischemic attack (TIA), and cerebral infarction without residual deficits; Z90.710 Acquired absence of both cervix and uterus; Z90.49 Acquired absence of other specified parts of digestive tract
CPT/HCPCS: 96372; G0463; J3420

== ENCOUNTER 2025-05-27 12:55 | Outpatient (CLI) | payer MEDICARE | END 2025-05-27 17:00 | disposition home or self-care (01) | LOC: Rad HDHVI 12:55 | PROVIDERS: ATTEND Internal Medicine Cardiovascular Disease | DX: I08.1 Rheumatic disorders of both mitral and tricuspid valves (principal); I51.7 Cardiomegaly; R53.1 Weakness | CPT/HCPCS: 93306 ==